=== PATIENT | female | born 1945 | race Caucasian/White ===

== ENCOUNTER → 2017-11-24 11:22 | Outpatient (CLI) | payer MEDICARE, BC, SELFPAY ==
[2017-11-24 11:49] LABS: Absolute Lymphocyte Count 2.16 X10^3/ul (0.83-4.51); Absolute Neutrophil Count 4.6 X10^3/uL (2.0-7.7); Basophil# 0.05 X10^3/uL; Basophil% 0.6 % (0-1); Eosinophils% 3.9 % (0-5); Hematocrit 40.3 % (37-47); Hemoglobin 13.1 g/dl (12.0-15.0); Lymphocyte # 2.16 X10^3/ul (4.0); Lymphocyte % 27.9 % (19-41); Mean Corp Hgb Conc 32.5 g/gl (32-36); Mean Corpuscular Hgb 31.2 pg (27.0-32.0); Mean Platelet Vol. 9.4 fl (6.2-12.0); Monocyte# 0.62 X10^3/uL; Neutrophil % 59.5 % (47-70); POSITIVE COUNT NO; POSITIVE DIFFERENTIAL NO; POSITIVE MORPHOLOGY NO; Platelet Count 290 K/mm3 (150-450); RBC Distribution Width CV 16.6 % (11.6-14.6); RBC Distribution Width SD 56.8 fl (35.1-43.9); White Blood Count 7.7 K/mm3 (4.4-11.0)
[2017-11-24 12:13] LABS: AST(SGOT) 22 U/L (15-37); Alanine Aminotransfer ALT/SGPT 24 U/L (13-56); Albumin, Serum 2.8 g/dL (3.2-5.0); Alkaline Phosphatase 46 U/L (45-117); Anion Gap 4 (5-15); BUN 16 mg/dL (7-18); BUN/Creat Ratio 27.2 RATIO (10-20); Calcium,Total 8.5 mg/dL (8.5-10.1); Chloride 107 mmol/L (98-107); Creatinine, Serum 0.59 mg/dL (0.55-1.02); EST Glomerular Filtration Rate 108 mL/min (>60); Est Glom Filt Rate - Afr Amer 130 mL/min (>60); Globulin 2.9 g/dL (2.2-4.2); Glucose 72 mg/dL (74-106); Potassium 3.7 mmol/L (3.5-5.1); Protein, Total 5.7 g/dL (6.4-8.2); Sodium Level 141 mmol/L (136-145)
== END ==
PROVIDERS: Family Provider Student in an Organized Health Care Education/Training Program; PCP Student in an Organized Health Care Education/Training Program; Visit Provider Internal Medicine Rheumatology
DX: M06.4 Inflammatory polyarthropathy (principal); M75.41 Impingement syndrome of right shoulder; D50.9 Iron deficiency anemia, unspecified; M46.44 Discitis, unspecified, thoracic region; H01.009 Unspecified blepharitis unspecified eye, unspecified eyelid
CPT/HCPCS: 36415; 80053; 85025

== ENCOUNTER → 2018-03-07 09:53 | Outpatient (CLI) | payer MEDICARE, BC, SELFPAY ==
[2018-03-07 10:20] LABS: Absolute Lymphocyte Count 1.21 X10^3/ul (0.83-4.51); Absolute Neutrophil Count 3.5 X10^3/uL (2.0-7.7); Basophil# 0.03 X10^3/uL; Basophil% 0.6 % (0-1); Eosinophil# 0.22 X10^3/uL; Eosinophils% 4.1 % (0-5); Hematocrit 32.3 % (37-47); Lymphocyte # 1.21 X10^3/ul (4.0); Lymphocyte % 22.4 % (19-41); Mean Corpuscular Hgb 26.5 pg (27.0-32.0); Mean Corpuscular Volume 85.7 fL (81-99); Mean Platelet Vol. 8.4 fl (6.2-12.0); Monocyte# 0.46 X10^3/uL; Monocyte% 8.5 % (0-10); Neutrophil # 3.47 X10^3/uL (2.7-7.7); Neutrophil % 64.4 % (47-70); Platelet Count 252 K/mm3 (150-450); RBC Distribution Width CV 13.1 % (11.6-14.6); RBC Distribution Width SD 40.8 fl (35.1-43.9); Red Blood Count 3.77 M/mm3 (4.2-5.4); White Blood Count 5.4 K/mm3 (4.4-11.0)
[2018-03-07 10:23] LABS: POSITIVE COUNT NO; POSITIVE DIFFERENTIAL NO; POSITIVE MORPHOLOGY NO
[2018-03-07 11:19] LABS: Microalbumin,Random Urine < 5.0 mg/L (NO RANGE EST.)
[2018-03-07 11:26] LABS: ALB/GLOB Ratio 0.9 RATIO (0.9-2.4); AST(SGOT) 28 U/L (15-37); Alanine Aminotransfer ALT/SGPT 25 U/L (13-56); Albumin, Serum 2.9 g/dL (3.2-5.0); Alkaline Phosphatase 47 U/L (45-117); Anion Gap 8 (5-15); BUN 15 mg/dL (7-18); BUN/Creat Ratio 25.9 RATIO (10-20); Calcium,Total 8.1 mg/dL (8.5-10.1); Chloride 108 mmol/L (98-107); Cholesterol 158 mg/dL (200); Creatinine, Serum 0.58 mg/dL (0.55-1.02); EST Glomerular Filtration Rate 109 mL/min (>60); Est Glom Filt Rate - Afr Amer 132 mL/min (>60); Ferritin 5 ng/mL (8-252); Globulin 3.1 g/dL (2.2-4.2); Glucose 90 mg/dL (74-106); High Density Lipoprotein 54 mg/dL; Iron 25 ug/dL (50-170); Iron Binding Capacity,Total 410 ug/dL (250-450); PERCENT IRON SATURATION 6.1 % (15.0-55.0); Potassium 3.9 mmol/L (3.5-5.1); Sodium Level 143 mmol/L (136-145); Triglycerides 131 mg/dL; Very Low Density Lipoprotein 26 mg/dL (5-40)
[2018-03-07 11:27] LABS: Hemoglobin A1c 5.1 % (4.2-6.3)
== END ==
PROVIDERS: Family Provider Student in an Organized Health Care Education/Training Program; PCP Student in an Organized Health Care Education/Training Program; Visit Provider Nurse Practitioner Adult Health
DX: Z00.00 Encounter for general adult medical examination without abnormal findings (principal); E88.09 Other disorders of plasma-protein metabolism, not elsewhere classified; D50.0 Iron deficiency anemia secondary to blood loss (chronic); Z79.899 Other long term (current) drug therapy
CPT/HCPCS: 36415; 80053; 80061; 82043; 82570; 82728; 83036; 83540; 83550; 85025

== ENCOUNTER → 2019-08-30 10:14 | Outpatient (CLI) | payer MEDICARE, BC, SELFPAY ==
[2019-08-30 11:25] LABS: Absolute Lymphocyte Count 1.72 X10^3/uL (0.83-4.51); Absolute Neutrophil Count 5.5 X10^3/uL (2.0-7.7); Basophil# 0.03 X10^3/uL; Basophil% 0.4 % (0-1); Eosinophil# 0.17 X10^3/uL; Eosinophils% 2.2 % (0-5); Hematocrit 39.8 % (37-47); Hemoglobin 12.9 g/dL (12.0-15.0); Lymphocyte # 1.72 X10^3/ul (4.0); Lymphocyte % 21.8 % (19-41); Mean Corp Hgb Conc 32.4 g/dL (32-36); Mean Corpuscular Hgb 32.1 pg (27.0-32.0); Mean Platelet Vol. 9.1 fl (6.2-12.0); Monocyte# 0.42 X10^3/uL; Monocyte% 5.3 % (0-10); NRBC Flagged by Analyzer 0 % (0-5); Neutrophil # 5.53 X10^3/uL (2.7-7.7); Platelet Count 290 K/mm3 (150-450); RBC Distribution Width CV 12.2 % (11.6-14.6); RBC Distribution Width SD 44.7 fl (35.1-43.9); Red Blood Count 4.02 M/mm3 (4.2-5.4); White Blood Count 7.9 K/mm3 (4.4-11.0)
[2019-08-30 11:55] LABS: AST(SGOT) 16 U/L (15-37); Alanine Aminotransfer ALT/SGPT 22 U/L (13-56); Albumin, Serum 2.8 g/dL (3.2-5.0); Alkaline Phosphatase 47 U/L (45-117); Anion Gap 7 (5-15); BUN 15 mg/dL (7-18); BUN/Creat Ratio 25.9 RATIO (10-20); Calcium,Total 8.4 mg/dL (8.5-10.1); Chloride 105 mmol/L (98-107); Creatinine, Serum 0.58 mg/dL (0.55-1.02); EST Glomerular Filtration Rate 109 mL/min (>60); Est Glom Filt Rate - Afr Amer 132 mL/min (>60); Globulin 2.7 g/dL (2.2-4.2); Glucose 76 mg/dL (74-106); Protein, Total 5.5 g/dL (6.4-8.2); Sodium Level 141 mmol/L (136-145)
== END ==
PROVIDERS: Family Provider Student in an Organized Health Care Education/Training Program; PCP Student in an Organized Health Care Education/Training Program; Referring Provider Internal Medicine Rheumatology; Visit Provider Internal Medicine Rheumatology
DX: M06.4 Inflammatory polyarthropathy (principal); M75.41 Impingement syndrome of right shoulder; D50.9 Iron deficiency anemia, unspecified; M46.44 Discitis, unspecified, thoracic region; H01.009 Unspecified blepharitis unspecified eye, unspecified eyelid; L90.0 Lichen sclerosus et atrophicus
CPT/HCPCS: 36415; 80053; 85025

== ENCOUNTER 2019-10-28 05:33 | Day surgery (SDC) | payer MEDICARE, BC, SELFPAY ==
--- NOTE | 2019-10-15 14:08 | HP.PCM_ITS ---
History and Physical Date of Admission: 10/28/19 HPI: The patient is a 73 year old female presenting for pre-operative visit. She is scheduled for?TVH, possible BSO, co surgery w/ urogyn, for?symptomatic prolapse on?10/28/19. ??Procedure discussed along with risks, benefits and complications. ?Other alternatives discussed for management. Consent form signed??Yes.? PAST MEDICAL HISTORY PAST MEDICAL HISTORY Diagnosis Date ? Discitis 07/2012 ? T12-L1 diskitis/osteomyelitis ? Episcleritis of both eyes ? ? recurrent, iritis also ? Esophageal reflux ? ? Gastritis, chronic ? ? NSAID ? Generalized osteoarthrosis, unspecified site ? ? Headache(784.0) ~2008 ? left periocular, cleared by Neuro, MRI brain normal ? Internal hemorrhoids without mention of complication ? ? Iron deficiency anemia, unspecified ? ? Dr. Saul ? Other abnormal heart sounds ? ? Postmenopausal atrophic vaginitis ? ? Lichen sclerosis et atrophicus ? Sciatica ? ? degenerative disk disease ? Unspecified inflammatory polyarthropathy ? ? Dr. Fontanez ? ? PAST SURGICAL HISTORY PAST SURGICAL HISTORY Procedure Laterality Date ? CATARACT EXT; EYEONICS IOL SYS ? 01/10/16 ? CATARACT EXT; EYEONICS IOL SYS ? 02/22/16 ? COLONOSCOP W/ OR W/O BRSH SPEC ? 11/10/07 ? COLONOSCOP W/ OR W/O BRSH SPEC ? 02/03/14 ? Colonoscopy ? COLONOSCOPY ? 02/10/2013 ? COLONOSCOPY ? 12/22/14 ? unsuccessful advancement to ileum ? COLONOSCOPY - DIAGNOSTIC ? 11/11/03 ? DISKECTOMY, LUMBAR, SINGLE SP ? 97 ? Cervical ? EGD ? 06/14/2003 ? EGD W/O BRSH SPECIMEN W/BX ? ? ? EGD W/O BRSH SPECIMEN W/BX ? 07/27/07 ? EGD W/O OR W/BRUSH/WASH ? 10/14/05 ? EGD ? EGD W/O OR W/BRUSH/WASH ? 02/10/13 ? EGD ? ENTEROTOMY FOR EXPLOR,BX,FB REMOVL ? 01/19/15 ? retrieval capsule via enterotomy, ?appendicectomy ? EXCISION BENIGN TUMOR/CYST ? ? ? 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 LIGATE FALLOPIAN TUBE ? ? ? Tubal ligation ? PAST SURGICAL HISTORY OF ? 11/19/07 ? capsule endoscopy ?at [facility] ? PAST SURGICAL HISTORY OF ? 04/28/13 ? Capsule endoscopy at [facility] ? PAST SURGICAL HISTORY OF ? 2011 ? thoracic disc abscess ? PICC LINE INSERT/CONSULT ? 07/21/2012 ? abx to treat spinal infection ? REPAIR ING HERNIA,5+Y/O,REDUCIBL Right 03-21-15 ? ? CURRENT MEDICATIONS Current Outpatient Medications Medication Sig Dispense Refill ? estradiol (ESTRACE) 0.01 % (0.1 mg/gram) vaginal cream Use 1 g vaginally three times a week. to vaginal opening area 1 Tube 3 ? dicyclomine (BENTYL) 10 mg capsule Take 1 capsule by mouth before meals and at bedtime. For irritable bowel symptoms as needed 90 capsule 3 ? busPIRone (BUSPAR) 5 mg tablet Take 1 tablet by mouth three times daily as needed. 90 tablet 1 ? acetaminophen (TYLENOL ARTHRITIS ORAL) Take by mouth. ? ? ? clobetasol (TEMOVATE) 0.05 % ointment TO AFFECTED AREA ?PRN 90 g 0 ? Cholecalciferol, Vitamin D3, 1,000 unit cap Take 1 capsule by mouth twice daily. ? ? ? Vaginal Lubricant (REPLENS) gel Use ?vaginally one time only. ? ? ? chlordiazePOXIDE-clidinium (LIBRAX) 5-2.5 mg per capsule Take 1 capsule by mouth three times daily with meals. Takes 1 to 2 capsules 3 times per day as needed 30 capsule 1 ? traMADol (ULTRAM) 50 mg tablet Take 50 mg by mouth every 6 hours as needed. 1/2 tablet as needed ? ? ? methylcellulose, with sugar, (CITRUCEL) oral powder Take 1 scoop by mouth once daily. ? ? ? docusate sodium 100 mg capsule Take 100 mg by mouth daily at bedtime. ? ? ? MULTI-VITAMIN ORAL Take 1 tablet by mouth once daily. ? ? ? Pimento-3 Fatty Acids-Vitamin E (FISH OIL) 1,000 mg cap Take 1 capsule by mouth once daily. ? ? ? No current facility-administered medications for this visit.? ? ALLERGIES:?Bactrim Ds [Sulfamethoxazole-Trimethoprim]; Codeine; Flexeril [Cyclobenzaprine Hcl]; Neurontin [Gabapentin] ? PERSONAL HISTORY:? SOCIAL HISTORY Social History ? Tobacco Use ? Smoking status: Never Smoker ? Smokeless tobacco: Never Used Substance Use Topics ? Alcohol use: Yes ? ? Comment: Rarely ? Drug use: No ? FAMILY HISTORY:? FAMILY HISTORY FAMILY HISTORY Problem Relation Age of Onset ? Alzheimer's Disease Mother ? ? Diabetes Mother ? ? Hypertension Mother ? ? Emphysema Father ? ? Colon Cancer Father ?late in life ? Prostate Cancer Father ? ? Diabetes Sister ? ? Hypertension Sister ? ? Hypertension Sister ? ? Hyperlipidemia Sister ? ? Hypertension Brother ? ? other (chronic lymphocytic leukemia) Brother ? ? Colon Cancer Paternal Uncle ? ? Ischemic Heart Disease Paternal Uncle ? ? Colon Cancer Paternal Grandmother ? ? other (lung cancer) Brother ?Smoker ? REVIEW OF SYMPTOMS: GENERAL: denies fevers or chills ENDOCRINOLOGY: has not been on steroids Cardiology : denies palpitations or chest pain Respiratory: denies SOB or cough Hematology: denies history of prolonged bleeding or easy bruising or VTE Allergy: Denies history of personal or family history of allergy to anesthesia ? ? PHYSICAL EXAMINATION: ? VITALS:?There were no vitals taken for this visit. ? GENERAL:??The patient is well nourished, well hydrated in no acute distress. ?, The patient is oriented to time, place, and person. NECK:?Supple. No lynphadenopathy, normal thyroid, no thyromegaly. LUNGS:?Clear to auscultation bilaterally. no wheezes, rhonchi or rales HEART:?Regular rate and rhythm, Normal heart sounds and No murmurs or gallops ? IMPRESSION:?symptomatic complete uterovaginal prolapse ? PLAN:???The risks/benefits/alternatives and personal involved for the planned?TVH w/ possible BSO w/ cosurgery w/ urogyn?were reviewed with the patient. Her questions were answered to her satisfaction and she desires to proceed. ?Consent was signed. ?I reviewed with her postop instructions and expectations. ? ? I have reviewed and updated past medical and surgical history, medications and allergies?
--- NOTE | 2019-10-22 12:21 | EKG12_ITS ---
Test Reason : PREOP Blood Pressure : / mmHG Vent. Rate : 069 BPM Atrial Rate : 069 BPM P-R Int : 146 ms QRS Dur : 090 ms QT Int : 410 ms P-R-T Axes : 077 033 044 degrees QTc Int : 439 ms Normal sinus rhythm Low voltage QRS Borderline ECG Confirmed by MIL MARTINEZ, JACKELIN ([id number]), proposal editor KAYLEIGH BERGERON ([id number]) on 10/25/2019 12:22:44 PM Referred By: Cammy Mock Confirmed By:JACKELIN JAEGER MD
[2019-10-22 12:35] LABS: Hematocrit 37.8 % (37-47); Hemoglobin 12.2 g/dL (12.0-15.0); Mean Corp Hgb Conc 32.3 g/dL (32-36); Mean Corpuscular Hgb 31.6 pg (27.0-32.0); Mean Corpuscular Volume 97.9 fL (81-99); Mean Platelet Vol. 9.3 fl (6.2-12.0); Platelet Count 249 K/mm3 (150-450); RBC Distribution Width CV 12.6 % (11.6-14.6); RBC Distribution Width SD 45.1 fl (35.1-43.9); Red Blood Count 3.86 M/mm3 (4.2-5.4); White Blood Count 8.4 K/mm3 (4.4-11.0)
[2019-10-22 12:41] LABS: Prothrombin Time (Protime)PT. 13.3 SECONDS (11.7-14.9)
[2019-10-28] VITALS (10 sets, daily range): BP systolic 86–123; BP diastolic 44–70; PULSE 49–84; RESP 12–16; TEMP 36.5–37; O2SAT 97–100; BMI 20.5
[2019-10-28] MEDS: Acetaminophen 500 MG Tablet 1000 MG PO ×4 (06:17→23:07)
[2019-10-28] MEDS: Enoxaparin 40 MG/0.4 ML Syringe SC (06:18)
[2019-10-28] MEDS: Celecoxib 200 MG Capsule PO (06:18)
[2019-10-28] MEDS: Phenazopyridine 95 MG Tablet 190 MG PO (06:18)
[2019-10-28] MEDS: Lactated Ringers 1,000 ML 40 ML IV ×2 (06:28→10:03)
[2019-10-28] MEDS: Magnesium Sulfate 4gm/100mL 4 GM/100 ML IV.SOLN. IV (06:30)
[2019-10-28 06:56] LABS: Bedside Glucose 74 mg/dL (70-110)
--- NOTE | 2019-10-28 07:30 | UT_PTH ---
PATIENT: LADAN HEALY LOC: [facility] [place] U#:[id number] AGE/SX: 73/F ROOM: RE10/28/[address]: Dr. Cammy Mock MD : [id number] BED: DIS: 10/29/2019 SPEC #: [id number] RECD: 10/28/19 12:25 STATUS: CARMEN ROBIN #: [id number] VINNIE: 10/28/19 07:[address]: Cammy Mock DEPT: SURGICAL PATHOLOGY RECD BY: Eddie Richter ENTERED: 10/28/19 13:59 SP TYPE: UTERUS OTHR DR: MD Dr. Phillip Flanagan, DO Tissues: Uterus, NOS Procedures: Surgery Specimen Level V HEADER OPERATION: Total vaginal hysterectomy PRE-OP DIAGNOSIS: Symptomatic complete uterovaginal prolapse TISSUE SUBMITTED: Uterus and cervix MICROSCOPIC DIAGNOSIS Uterus and cervix, total vaginal hysterectomy: Cervix - chronic cystic cervicitis. Endometrium - inactive endometrium. Myometrium - intramural leiomyomas with focal area of hyalinization. - Focal adenomyosis. RAJINDER:valdez 10/29/19 MICROSCOPIC DESCRIPTION Slides are reviewed. GROSS DESCRIPTION Received in fixative is one container labeled with the patient's name and designated uterus and cervix. The specimen consists of a hysterectomy specimen consisting of uterus with cervix. The uterus with cervix weighs 38 gm and measures 7 x 4 x 2.5 cm. The serosal surface is orantes, glistening. The ectocervical mucosa is unremarkable. A small amount of vaginal mucosal tissue is also noted adjacent to?the cervix. The external os is oval in contour. The endocervical canal measures 2 cm in length and the endocervical mucosa is orantes, glistening and unremarkable. The triangular endometrial cavity measures 3 cm in length and 2 cm in width. The endometrium is orantes, glistening without any mass lesion and measures <1 cm in thickness. Sections of the uterine wall reveal two nodular masses in the uterine wall measuring 1 and 1.5 cm in diameter. Sections of these masses reveal orantes whorled cut surfaces without areas of hemorrhage, necrosis or cystic degeneration. The uninvolved uterine wall measures up to 1 cm in thickness. Gum Dipper sections are submitted in seven cassettes as follows: 1 - anterior cervix, 2 - posterior cervix, 3 & 4 - anterior uterine wall (3 also contains the nodular mass), 5 & 6 - posterior uterine wall, 7??nodular masses. / RAJINDER:valdez 10/28/19 TC:1 CPT: 12349
[2019-10-28] MEDS: Cefazolin 2 GM in 0.9% Normal Saline 100 ML IV (07:33)
[2019-10-28] MEDS: Lubricating Jelly 60 GM Tube 30 GM TOPICAL (08:00)
--- NOTE | 2019-10-28 08:16 | PCM.OPRPT ---
Problem List (1) Uterovaginal prolapse Status: Acute (2) Urethral hypermobility Status: Acute Report of Operation Date of Procedure: 10/28/19 Pre-Operative Diagnosis: uterovaginal prolapse, urethral hypermobility Post-Operative Diagnosis: same Surgery/Procedure Performed:: Posterior repair, sacrospinous ligament fixation, midurethral sling, cystoscopy senior research manager: Rodrick Galloway Type of Anesthesia:: General Specimen's removed: None Estimated Blood Loss (mL): 25 cc Description of Procedure: The patient is a 73-year-old female with uterovaginal prolapse and urethral hypermobility who decided to proceed with surgical intervention. She was evaluated with office cystoscopy and urodynamics and informed consent was obtained. The patient was taken to the operating room and placed on the operating room table. Anesthesia monitored the head, neck, airway, IV access and vital signs throughout the case. Once anesthesia was appropriately administered, the patient was prepped and draped in usual sterile fashion. Dr. Mock proceeded with a hysterectomy and cuff closure. At this time the case was turned over to nd. The anterior defect was no longer present following hysterectomy. Posteriorly there was an apical defect. The posterior vaginal wall was injected submucosally for hydrostatic dissection and hemostatic control. The rectovaginal fascia was identified bilaterally. Dissection continued bluntly until the ischial spine was palpable on the patient's right side. The sacrospinous ligament was identified and freed from surrounding tissues. The Monodek suture and the Capio device were used to obtain access to the right sacrospinous ligament. The suture was then brought through the vaginal apex adjacent to the cuff. The rectovaginal fascia was brought together in a 2 layer closure to fix the defect. The vaginal Koza was then closed using running interlocking 2-0 Vicryl. Attention was then turned toward the mid urethra which was submucosally injected. Approximately 1.5 cm vertical incision was made. Sharp and blunt dissection was performed on either side of the urethra. Using the trochars for the Altis, the sling was inserted. Using the tensioning suture the sling lay flat against the urethra without tension. The vaginal mucosa was closed over the sling with running interlocking 2-0 Vicryl. A cystourethroscopy was then performed using the 70 degree lens. There were no entries into the urinary bladder or urethra with any foreign object. The bladder mucosa remains normal as previously seen in the office. The Phillip catheter was replaced, and the vagina was packed with Premarin cream and vaginal packing. The patient was awakened and taken to the recovery room in good condition. There were no complications during the procedure. Grafts/Implants Used: Altis midurethral sling - Complications None - Admit VTE Documentation VTE Present on Admission: Yes VTE Mechan Device Prophylaxis: SCD's VTE Pharm Prophylaxis ordered?: Yes
--- NOTE | 2019-10-28 08:18 | PCM.DC.URO ---
Discharge Diet: No Restrictions Discharge Activity: May Not Drive - for 2 weeks, May Shower May resume sexual activity in: 8 weeks Lifting Restrictions: 5 pounds for 8 weeks Additional Activity Instructions:: no exericse, no strenuous activity, no vacuuming, no lifting over 5 pounds, no intercourse, nothing per vagina except estrogen cream Call your doctor if your incision/area has: Continuous Slow Oozing, Sudden Increased Bleeding, Foul Smelling Discharge Call your doctor if you observe: Fever of 101 or Higher, Inability to urinate, Inability to have a bowel movement, Calf discomfort, Uncontrolled pain Allergies/Adverse Reactions: Allergies sulfamethoxazole [From Bactrim] Allergy (Intermediate, Verified 10/28/19 06:03) Hives trimethoprim [From Bactrim] Allergy (Intermediate, Verified 10/28/19 06:03) Hives cyclobenzaprine HCl [From Flexeril] Allergy (Unknown, Verified 10/28/19 06:03) Hives codeine Adverse Reaction (Intermediate, Verified 10/28/19 06:03) Vomiting gabapentin [From Neurontin] Adverse Reaction (Verified 10/28/19 06:03) dizziness Medications to take at Discharge Acetaminophen [Tylenol Arthritis] 650 mg PO 4X/DAY 07/13/13 Cholecalciferol (VIT D3) [Vitamin D] 1,000 unit PO BID 10/21/19 Clidinium/Chlordiazepoxide [Librax] 2.5 mg PO PRN PRN 10/21/19 Dicyclomine HCl [Bentyl] 10 mg PO PRN PRN 10/21/19 Docusate Sodium [Colace] 100 mg PO BID 10/21/19 Estradiol [Estrace Vaginal Cream] 1 dose VAGINAL MOWEFR 10/21/19 Famotidine [Acid Controller] 10 mg PO BID 10/21/19 L.acidoph,Paracasei, B.lactis [Probiotic] 1 ea PO DAILY 10/21/19 Methylcellulose (with Sugar) [Citrucel Powder] 850 gm PO DAILY 10/21/19 Multivitamin with Minerals [Multiple Vitamin] 1 ea PO DAILY 10/21/19 Polyethylene Glycol 3350 [Miralax] 17 gm PO DAILY 10/21/19 RX: Ibuprofen 400 mg PO PRN PRN 10/21/19 Replens Gel 1 mg TOPICAL TUTHSA 01/16/20 busPIRone [Buspar] 5 mg PO PRN PRN 10/21/19 traMADol [Ultram (G)] 25 mg PO PRN PRN 10/21/19 Orders to be completed after discharge: CBC-Complete Blood Cnt No Diff Time Frame: 10/21/19, Facility: [facility], Location: Laboratory Primary Care Physician: Phillip Ozuna DO [Primary Care Provider] - Test Results: Test results from this visit will be discussed in further detail at your follow-up appointment, if applicable. Please Follow Up With: Naomi Knutson MD When: call for appt to be seen in 2 weeks Proposed Discharge Date: 10/29/19
--- NOTE | 2019-10-28 08:50 | PCM.OPRPT ---
Report of Operation Date of Procedure: 10/28/19 Pre-Operative Diagnosis: symptomatic uterovaginal prolapse Post-Operative Diagnosis: same Surgery/Procedure Performed:: total vaginal hysterectomy turntable man: Rj Davila turntable man: Laverne Arango Type of Anesthesia:: General Anesthesiologist: Martin Mena Special Medications: none Specimen's removed: uterus and cervix Drains: maya Description of Procedure: The patient was taken to the operating room where she was prepped and draped in the normal sterile fashion in the dorsal lithotomy position. A weighted speculum was placed in the vagina and the anterior lip of the cervix was grasped with a Ciarra clamp. The vaginal epithelium was infiltrated circumferentially around the cervix with [1% Xylocaine solution]. An incision was made [around the entire cervix] with a scalpel and the vaginal epithelium was dissected back with blunt and sharp dissection. The anterior colpotomy incision was made sharply. Entry into the anterior cul-de-sac was confirmed by visualization of the uterine fundus and bowel behind the uterus. [The posterior colpotomy was made with the Miguel scissors. The posterior peritoneum was secured to the posterior vaginal cuff with an [id number] 0 Vicryl suture. The Christie retractor was placed in the posterior colpotomy incision.] The uterosacral ligaments were clamped with Leandro clamps transected and suture ligated on both sides and excellent hemostasis of the pedicles was noted. [The cardinal ligaments were clamped transected and suture ligated. The remainder of the cardinal ligament with the uterine arteries was clamped transected and suture ligated.] The utero-ovarian ligaments and tubes were clamped transected and suture ligated. The uterus was brought out through the colpotomy incision intact. Both ovaries were palpated but not visualized and were very small and atrophic into the pelvic sidewall so the decision was made not to remove them. The pedicles were all examined again and found to be hemostatic. The vaginal cuff was then reapproximated horizontally with interrupted 0 Vicryl [id number] sutures. The vaginal cuff was hemostatic and excellent support was noted. The Maya was left to straight drain. The vaginal sweep was completed by me. All sponge lap and needle counts were correct. The surgery was turned over to Dr. Knutson.
[2019-10-28] MEDS: Estrogens,Conj. 1 Tube 1 DOSE (09:00)
[2019-10-28] MEDS: Docusate Sodium 100 MG Capsule PO ×2 (12:23→20:59)
[2019-10-28] MEDS: Cephalexin 500 MG Capsule PO ×2 (12:23→21:00)
[2019-10-28] MEDS: Ketorolac 15 MG/ML Vial IV ×2 (13:09→20:51)
[2019-10-28] MEDS: 0.9% Saline Lock 10 ML Syringe IV (20:51)
[2019-10-28] MEDS: Famotidine 20 MG Tablet 10 MG PO (20:59)
[2019-10-29] MEDS: Ketorolac 15 MG/ML Vial IV ×2 (02:25→07:53)
[2019-10-29] MEDS: 0.9% Saline Lock 10 ML Syringe IV ×2 (02:25→07:53)
[2019-10-29 02:36] VITALS: BP 119/58; PULSE 80; RESP 16; TEMP 37.1; O2SAT 96
[2019-10-29 05:33] LABS: Hematocrit 31.5 % (37-47); Hemoglobin 10.1 g/dL (12.0-15.0); Mean Corp Hgb Conc 32.1 g/dL (32-36); Mean Corpuscular Hgb 30.8 pg (27.0-32.0); Mean Platelet Vol. 9.3 fl (6.2-12.0); Platelet Count 192 K/mm3 (150-450); RBC Distribution Width CV 13.1 % (11.6-14.6); RBC Distribution Width SD 45.9 fl (35.1-43.9); Red Blood Count 3.28 M/mm3 (4.2-5.4); White Blood Count 8.5 K/mm3 (4.4-11.0)
[2019-10-29] MEDS: Acetaminophen 500 MG Tablet 1000 MG PO ×2 (06:26→12:45)
[2019-10-29] MEDS: Docusate Sodium 100 MG Capsule PO (07:53)
[2019-10-29] MEDS: Cephalexin 500 MG Capsule PO (07:53)
[2019-10-29] MEDS: Famotidine 20 MG Tablet 10 MG PO (07:54)
[2019-10-29 08:00] VITALS: BP 124/65; PULSE 74; RESP 14; TEMP 37; O2SAT 97
--- NOTE | 2019-10-29 08:01 | NURSING ---
all am med given at this time per pt request
--- NOTE | 2019-10-29 08:35 | PCM.PN.BLA ---
Progress Note Up in bed. Pain controlled, passing gas and tolerating PO intake. Phillip and packing removed. Trial of void and home today. Follow up in the office.
[2019-10-29 11:15] VITALS: O2SAT 96
== END 2019-10-29 13:35 | disposition home or self-care (01) ==
LOC: SDC 05:34 → AC 05:35 → MS3 13:14
PROVIDERS: Anesthesiology; Urology; Family Provider Student in an Organized Health Care Education/Training Program; PCP Student in an Organized Health Care Education/Training Program; Referring Provider Obstetrics & Gynecology; Visit Provider Obstetrics & Gynecology
PROC: (CPT 58260; principal; 2019-10-28 07:10)
PROC: (CPT 57260; 2019-10-28 07:10)
DX: N81.3 Complete uterovaginal prolapse (principal); N72 Inflammatory disease of cervix uteri; D25.1 Intramural leiomyoma of uterus; N80.0 Endometriosis of uterus; N36.41 Hypermobility of urethra; N39.46 Mixed incontinence; K21.9 Gastro-esophageal reflux disease without esophagitis; M15.9 Polyosteoarthritis, unspecified; D50.9 Iron deficiency anemia, unspecified; K58.1 Irritable bowel syndrome with constipation; F41.9 Anxiety disorder, unspecified; Z79.899 Other long term (current) drug therapy
CPT/HCPCS: 57250; 57282; 57288; 58260; 36415; 82962; 85027; 85610; 85730; 86850; 86900; 86901; 88307; 93005; 99251; J7120; A4216; G0463; J2405

== ENCOUNTER 2023-03-11 21:57 | Emergency (ER) | payer MEDICARE, BC, SELFPAY ==
[2023-03-11 21:57] VITALS: BP 140/84; PULSE 77; RESP 15; TEMP 36.6; O2SAT 97; BMI 20.8
--- NOTE | 2023-03-11 22:10 | RAD_ITS ---
EXAM: XR RIGHT SHOULDER COMPLETE, 2 OR MORE VIEWS CLINICAL INDICATION: INJURY TECHNIQUE: Two or more views of the right shoulder. COMPARISON: No relevant prior studies available. FINDINGS: BONES/JOINTS: Unremarkable. No acute fracture. No subluxation. Normal alignment. Preservation of the joint space. No sclerotic or destructive changes observed. SOFT TISSUES: Unremarkable. No soft tissue swelling or gas. No radiopaque foreign body. RAD/Shoulder min 2 Views IMPRESSION: Negative right shoulder x-rays. Electronically Signed: Adam Bradshaw MD at 22:27 EDT ,
--- NOTE | 2023-03-11 23:31 | EDS_ITS ---
HPI History of Present Illness Chief Complaint: Fall Narrative Narrative: 77-year-old female presenting with right shoulder pain. She states she slipped on some gravel into the barn door and hit her head without LOC. She is not on any blood thinners. She denies dizziness, visual complaint, lightheadedness, nausea. She does complain of right shoulder pain and has a history of partial tear in the right shoulder. This was managed nonoperatively. She does have a little bit of limitation in her range of motion secondary to that injury but she has been active. She wants to make sure she did not break anything. PFSH PFSH Home Medications acetaminophen 650 mg tablet,extended release (Tylenol Arthritis Pain) 650 mg PO 4X/DAY 07/13/13 [History Last Taken 10/28/19 03:30] L.acidoph, paracasei,B. lactis 10 billion cell capsule 1 ea PO DAILY 10/21/19 [History Last Taken Unknown] Replens Gel 1 mg topical TUTHSA 10/21/19 [History Last Taken Unknown] buspirone 5 mg tablet 5 mg PO PRN PRN Anxiety 10/21/19 [History Last Taken Unknown] chlordiazepoxide-clidinium 5 mg-2.5 mg capsule 2.5 mg PO TID PRN IBS symptoms 10/21/19 [History Last Taken Unknown] cholecalciferol (vitamin D3) 25 mcg (1,000 unit) tablet 1,000 unit PO BID 10/21/19 [History Last Taken Unknown] dicyclomine 10 mg capsule 10 mg PO PRN PRN ibs 10/21/19 [History Last Taken Unknown] docusate sodium 100 mg capsule 100 mg PO BID 10/21/19 [History Last Taken Unknown] estradiol 0.01% (0.1 mg/gram) vaginal cream 1 dose vaginal MOWEFR 10/21/19 [History Last Taken Unknown] famotidine 20 mg tablet 10 mg PO BID 10/21/19 [History Last Taken 10/28/19 03:30] ibuprofen 400 mg tablet 400 mg PO PRN PRN Pain Or Fever 10/21/19 [History Last Taken Unknown] methylcellulose (with sugar) oral powder 850 gm PO DAILY 10/21/19 [History Last Taken Unknown] multivitamin with minerals 1 ea PO DAILY 10/21/19 [History Last Taken Unknown] polyethylene glycol 3350 17 gram oral powder packet 17 gm PO DAILY 10/21/19 [History Last Taken Unknown] tramadol 50 mg tablet 25 mg PO PRN PRN Pain Or Fever 10/21/19 [History Last Taken Unknown] cephalexin 500 mg capsule 500 mg PO Q12 10/29/19 [Rx Last Taken Unknown] docusate sodium 100 mg capsule 100 mg PO BID 10/29/19 [Rx Last Taken Unknown] Allergy/AdvReac Type Severity Reaction Status Date / Time sulfamethoxazole Allergy Intermediate Hives Verified 03/11/23 22:01 [From Bactrim] trimethoprim [From Bactrim] Allergy Intermediate Hives Verified 03/11/23 22:01 cyclobenzaprine HCl Allergy Unknown Hives Verified 03/11/23 22:01 [From Flexeril] codeine AdvReac Intermediate Vomiting Verified 03/11/23 22:01 gabapentin [From Neurontin] AdvReac dizziness Verified 03/11/23 22:01 Social History Smoking Status: Never smoker ROS ROS ED Constitutional Constitutional ED: Denies chills or fever(s) Eyes Eyes: Denies change in vision ENT ENT ED: Denies rhinorrhea or sore throat Cardiovascular Cardiovascular: Denies chest pain or palpitations Respiratory/Chest Respiratory/Chest: Denies cough or dyspnea Gastrointestinal Gastrointestinal: Denies abdominal pain Genitourinary Genitourinary ED: Denies dysuria or hematuria Musculoskeletal Musculoskeletal: Reports other Details: Right shoulder pain Integumentary Denies Abrasions or rash Neurologic Neurologic: Denies headache(s) or paresthesias EXAM Physical Exam Const Vital Signs: 03/11/23 21:57 Temperature 97.8 F Temperature Source Temporal Pulse Rate 77 Respiratory Rate 15 Blood Pressure 140/84 H Blood Pressure Mean 102 Pulse Ox 97 Oxygen Delivery Method Room Air Positive well nourished General Appearance ED: NAD HEENT atraumatic Eyes PERRL and EOMs intact bilaterally Resp normal respiratory effort Cardio regular rhythm Rate: regular rate Extremity Extremity Narrative: Tenderness to palpation in the right deltoid region. There is limitation in abduction, flexion secondary to pain. No bony deformities. Neuro oriented x3 and CN's II-XII intact bilaterally Motor Exam: strength 5/5 throughout Psych mental status grossly normal Skin no rashes or lesions noted MDM MDM MDM Narrative Medical decision making narrative: Patient presenting with right shoulder pain. She states did hit her head but she does not have any focal neurologic deficits or lateralizing signs or symptoms. She has no headache, dizziness, lightheadedness, nausea. I do not b clement she has a CT scan. I did obtain 2 views of the right shoulder on my interpretation there is no acute fracture or subluxation. Given patient's injury I suspect she might have a partial tear of her rotator cuff. I offered to send her to orthopedics but she states she wants to follow-up with her PCP to be referred. Return precautions discussed. She stable for discharge at this time. Impression: 1. Mechanical fall 2. Closed head injury 3. Right shoulder strain Radiography Diagnostic Testing: Clinical Impression(s) from Imaging Studies Shoulder X-Ray 03/11/23 22:10 IMPRESSION: Negative right shoulder x-rays. Electronically Signed: Adam Bradshaw MD at 22:27 EDT , Discharge Plan Triage Chief Complaint: Fall ED Provider: Ivan Beatty Dx/Rx/DC Orders Instructions: ED Contusion, Upper Extremity, ED Shoulder Sprain, ED Fall Prevention Prescriptions: No Action acetaminophen [Tylenol Arthritis Pain] 650 MG tablet extended release 650 mg PO 4X/DAY buspirone 5 MG tablet 5 mg PO PRN PRN (Reason: Anxiety) tramadol 50 MG tablet 25 mg PO PRN PRN (Reason: Pain Or Fever) famotidine 20 MG tablet 10 mg PO BID ibuprofen 400 MG tablet 400 mg PO PRN PRN (Reason: Pain Or Fever) docusate sodium 100 MG capsule 100 mg PO BID chlordiazepoxide-clidinium 2.5 MG capsule 2.5 mg PO TID PRN (Reason: IBS symptoms) multivitamin with minerals 1 EACH tablet 1 ea PO DAILY estradiol 42.5 GM cream 1 dose vaginal MOWEFR dicyclomine 10 MG capsule 10 mg PO PRN PRN (Reason: ibs) cholecalciferol (vitamin D3) 1,000 UNIT tablet 1,000 unit PO BID methylcellulose (with sugar) 850 GM powder 850 gm PO DAILY L.acidoph, paracasei,B. lactis 1 EACH capsule 1 ea PO DAILY Replens Gel 1 mg topical TUTHSA polyethylene glycol 3350 17 GM packet 17 gm PO DAILY cephalexin 500 MG capsule 500 mg PO Q12 0RF docusate sodium 100 MG capsule 100 mg PO BID 0RF Primary Care Provider: Phillip Ozuna Referrals: Phillip Ozuna DO [Primary Care Provider] - Disposition Disposition: Home, Self Care
== END 2023-03-11 23:34 | disposition home or self-care (01) ==
PROVIDERS: Emergency Provider Student in an Organized Health Care Education/Training Program; PCP Student in an Organized Health Care Education/Training Program; Visit Provider Student in an Organized Health Care Education/Training Program
DX: S09.90XA Unspecified injury of head, initial encounter (principal); S46.911A Strain of unspecified muscle, fascia and tendon at shoulder and upper arm level, right arm, initial encounter; W01.198A Fall on same level from slipping, tripping and stumbling with subsequent striking against other object, initial encounter
CPT/HCPCS: 73030; 99282

== ENCOUNTER 2025-08-11 13:13 | Outpatient (CLI) | payer MEDICARE, OTHER, SELFPAY ==
[2025-08-17 08:09] LABS: Calprotectin, Stool 774 ug/g (0-120)
== END 2025-08-11 23:59 | disposition home or self-care (01) ==
LOC: LABSPEC 13:14
PROVIDERS: PCP Student in an Organized Health Care Education/Training Program; Referring Provider Student in an Organized Health Care Education/Training Program; Visit Provider Student in an Organized Health Care Education/Training Program
DX: R19.5 Other fecal abnormalities (principal); K58.9 Irritable bowel syndrome, unspecified
CPT/HCPCS: 83630; 83993; 87177; 87209; 87329; 87506